=== PATIENT | male | born 1955 | race Caucasian/White ===

== ENCOUNTER 2016-11-04 12:42 | Outpatient (CLI) | payer OTHER | END 2016-11-04 12:43 | disposition home or self-care (01) | DX: L40.0 Psoriasis vulgaris (principal); L29.8 Other pruritus; Z79.899 Other long term (current) drug therapy; Z71.89 Other specified counseling ==

== ENCOUNTER 2017-02-24 14:21 | Outpatient (CLI) | payer OTHER ==
[2017-02-24 18:46] LABS: BASOPHILS % (AUTO) 0.4 %; EOSINOPHILS # (AUTO) 0.1 10^3/uL (0.0-0.7); HCT - HEMATOCRIT 40.8 % (42.0-52.0); HGB - HEMOGLOBIN 13.9 g/dL (14.0-18.0); LYMPHOCYTES % (AUTO) 31.4 %; MEAN CORPUSCULAR HEMOGLOBIN 34.3 pg (27.0-31.0); MEAN CORPUSCULAR HGB CONC 34.1 g/dL (32.0-36.0); MEAN CORPUSCULAR VOLUME 100.5 fL (80.0-94.0); MEAN PLATELET VOLUME 9.9 fL (7.4-11.4); MONOCYTES # (AUTO) 0.5 10^3/uL (0.0-1.0); MONOCYTES % (AUTO) 8.3 %; NEUTROPHILS # (AUTO) 3.8 10^3/uL (1.5-6.6); NEUTROPHILS % (AUTO) 58.9 %; RED BLOOD COUNT 4.06 10^6/uL (4.70-6.10); UNCORRECTED WHITE BLOOD COUNT 6.5 x10^3/uL; WHITE BLOOD COUNT 6.5 x10^3/uL (4.8-10.8)
[2017-02-24 18:57] LABS: ALBUMIN/GLOBULIN RATIO 1.8 (1.0-2.2); BILIRUBIN,TOTAL 1.2 mg/dL (0.2-1.0); BUN - BLOOD UREA NITROGEN 20 mg/dL (6-20); CALCIUM 9.3 mg/dL (8.5-10.3); CARBON DIOXIDE - CO2 27 mmol/L (21-32); CHLORIDE 104 mmol/L (101-111); CHOLESTEROL 182 mg/dL; GFR - MDRD 76 (>89); GLUCOSE 99 mg/dL (70-100); HDL CHOLESTEROL 89 mg/dL; POTASSIUM 3.7 mmol/L (3.5-5.0); SODIUM 139 mmol/L (135-145); TOTAL PROTEIN 7.2 g/dL (6.7-8.2); TRIGLYCERIDES 37 mg/dL
[2017-02-24 19:26] LABS: LDL CHOLESTEROL,DIRECT 75 mg/dL
[2017-02-24 19:33] LABS: HEMOGLOBIN A1C 0.5 g/dL
== END 2017-02-24 14:22 | disposition home or self-care (01) ==
LOC: LAB.F 14:21
PROVIDERS: ATTEND Internal Medicine
DX: I10 Essential (primary) hypertension (principal); R73.09 Other abnormal glucose
CPT/HCPCS: 36415; 80053; 80061; 83036; 85025

== ENCOUNTER 2017-04-30 15:33 | Outpatient (CLI) | payer OTHER ==
[2017-04-30 15:58] LABS: BASOPHILS % (AUTO) 0.7 %; EOSINOPHILS # (AUTO) 0.1 10^3/uL (0.0-0.7); EOSINOPHILS % (AUTO) 2.2 %; HCT - HEMATOCRIT 42.6 % (42.0-52.0); HGB - HEMOGLOBIN 14.5 g/dL (14.0-18.0); LYMPHOCYTES # (AUTO) 1.9 10^3/uL (1.5-3.5); MEAN CORPUSCULAR HEMOGLOBIN 34.4 pg (27.0-31.0); MEAN CORPUSCULAR HGB CONC 34.1 g/dL (32.0-36.0); MEAN CORPUSCULAR VOLUME 100.8 fL (80.0-94.0); MEAN PLATELET VOLUME 9.7 fL (7.4-11.4); MONOCYTES # (AUTO) 0.6 10^3/uL (0.0-1.0); NEUTROPHILS # (AUTO) 4.1 10^3/uL (1.5-6.6); NEUTROPHILS % (AUTO) 60.1 %; RED BLOOD COUNT 4.23 10^6/uL (4.70-6.10); RED CELL DISTRIBUTION WIDTH 13.1 % (12.0-15.0); UNCORRECTED WHITE BLOOD COUNT 6.7 x10^3/uL; WHITE BLOOD COUNT 6.7 x10^3/uL (4.8-10.8)
[2017-04-30 16:08] LABS: ALBUMIN/GLOBULIN RATIO 1.4 (1.0-2.2); BILIRUBIN,TOTAL 1.4 mg/dL (0.2-1.0); CALCIUM 8.9 mg/dL (8.5-10.3); POTASSIUM 3.5 mmol/L (3.5-5.0); TOTAL PROTEIN 7.4 g/dL (6.7-8.2)
== END 2017-04-30 15:34 | disposition home or self-care (01) ==
LOC: LAB 15:33
PROVIDERS: ATTEND Family Medicine
DX: L40.0 Psoriasis vulgaris (principal); Z79.899 Other long term (current) drug therapy; L82.1 Other seborrheic keratosis; L81.4 Other melanin hyperpigmentation; D22.5 Melanocytic nevi of trunk; D22.72 Melanocytic nevi of left lower limb, including hip; Z71.89 Other specified counseling; L81.8 Other specified disorders of pigmentation
CPT/HCPCS: 36415; 80053; 85025

== ENCOUNTER 2017-07-14 13:12 | Outpatient (CLI) | payer OTHER | END 2017-07-14 13:13 | disposition home or self-care (01) | LOC: LAB.F 13:12 | PROVIDERS: ATTEND Internal Medicine | DX: I10 Essential (primary) hypertension (principal) | CPT/HCPCS: 36415; 83735 ==

== ENCOUNTER 2017-09-15 09:54 | Outpatient (CLI) | payer OTHER | END 2017-09-15 09:55 | disposition home or self-care (01) | LOC: LAB.F 09:54 | PROVIDERS: ATTEND Internal Medicine | DX: N40.0 Benign prostatic hyperplasia without lower urinary tract symptoms (principal) | CPT/HCPCS: 36415; 84153 ==

== ENCOUNTER 2017-11-25 14:32 | Outpatient (CLI) | payer OTHER ==
[2017-11-25 14:57] LABS: BASOPHILS # (AUTO) 0.2 10^3/uL (0.0-0.1); EOSINOPHILS # (AUTO) 0.3 10^3/uL (0.0-0.7); EOSINOPHILS % (AUTO) 3.3 %; HGB - HEMOGLOBIN 14.1 g/dL (14.0-18.0); LYMPHOCYTES # (AUTO) 1.5 10^3/uL (1.5-3.5); LYMPHOCYTES % (AUTO) 20.5 %; MEAN CORPUSCULAR HEMOGLOBIN 33.5 pg (27.0-31.0); MEAN CORPUSCULAR HGB CONC 33.7 g/dL (32.0-36.0); MEAN CORPUSCULAR VOLUME 99.3 fL (80.0-94.0); MEAN PLATELET VOLUME 8.9 fL (7.4-11.4); MONOCYTES # (AUTO) 0.5 10^3/uL (0.0-1.0); MONOCYTES % (AUTO) 6.3 %; NEUTROPHILS % (AUTO) 66.9 %; PLT - PLATELET COUNT 201 10^3/uL (130-450); RED CELL DISTRIBUTION WIDTH 13.3 % (12.0-15.0); WHITE BLOOD COUNT 7.5 x10^3/uL (4.8-10.8)
[2017-11-25 15:27] LABS: ALBUMIN 4.2 g/dL (3.2-5.5); ALBUMIN/GLOBULIN RATIO 1.3 (1.0-2.2); BILIRUBIN,TOTAL 0.8 mg/dL (0.2-1.0); CREATININE 1.1 mg/dL (0.6-1.2); TOTAL PROTEIN 7.4 g/dL (6.7-8.2)
[2017-11-26 13:41] LABS: HIV AG/AB 4TH GEN NON-REACTIVE (NON-REACTIVE)
[2017-11-26 14:12] LABS: HEPATITIS B SURFACE ANTIGEN NON-REACTIVE (NON-REACTIVE)
[2017-11-26 15:36] LABS: HEPATITIS C ANTIBODY NON-REACTIVE (NON-REACTIVE)
== END 2017-11-25 14:33 | disposition home or self-care (01) ==
LOC: LAB 14:32
PROVIDERS: ATTEND Physician Assistant
DX: L40.0 Psoriasis vulgaris (principal)
CPT/HCPCS: 36415; 80053; 81599; 85025; 86803; 87340; 87389

== ENCOUNTER 2017-11-25 16:04 | Outpatient (CLI) | payer OTHER ==
--- NOTE | 2017-11-26 11:51 | XRAY Report ---
TWO VIEW CHEST: 11/25/2017 CLINICAL INDICATION: Cough. COMPARISON: 06/08/2017. FINDINGS: Frontal and lateral views of the chest demonstrate a normal cardiac silhouette. The lungs remain clear. No effusion or pneumothorax is present. IMPRESSION: NORMAL CHEST, UNCHANGED. TD: 11/26/2017 11:50
== END 2017-11-25 16:05 | disposition home or self-care (01) ==
LOC: DI 16:04
PROVIDERS: ATTEND Internal Medicine
DX: R05 Cough (principal); L40.0 Psoriasis vulgaris
CPT/HCPCS: 36415; 71046; 80053; 81599; 85025; 86480; 86803; 87340; 87389

== ENCOUNTER 2018-03-08 07:25 | Outpatient (CLI) | payer OTHER ==
[2018-03-08 11:46] LABS: BASOPHILS % (AUTO) 0.6 %; EOSINOPHILS # (AUTO) 0.2 10^3/uL (0.0-0.7); HGB - HEMOGLOBIN 14.3 g/dL (14.0-18.0); LYMPHOCYTES # (AUTO) 1.4 10^3/uL (1.5-3.5); LYMPHOCYTES % (AUTO) 28.7 %; MEAN CORPUSCULAR HEMOGLOBIN 34.9 pg (27.0-31.0); MEAN CORPUSCULAR HGB CONC 34.7 g/dL (32.0-36.0); MEAN CORPUSCULAR VOLUME 100.7 fL (80.0-94.0); MEAN PLATELET VOLUME 10.2 fL (7.4-11.4); MONOCYTES # (AUTO) 0.5 10^3/uL (0.0-1.0); MONOCYTES % (AUTO) 10.5 %; NEUTROPHILS # (AUTO) 2.7 10^3/uL (1.5-6.6); NEUTROPHILS % (AUTO) 56.2 %; PLT - PLATELET COUNT 158 10^3/uL (130-450); RED CELL DISTRIBUTION WIDTH 13.6 % (12.0-15.0); WHITE BLOOD COUNT 4.7 x10^3/uL (4.8-10.8)
[2018-03-08 12:03] LABS: ALBUMIN 4.4 g/dL (3.2-5.5); ALBUMIN/GLOBULIN RATIO 1.6 (1.0-2.2); ALKALINE PHOSPHATASE 59 IU/L (42-121); ALT ALANINE AMINOTRANSFERASE 29 IU/L (10-60); AST ASPARTATE AMINOTRANSFERASE 36 IU/L (10-42); BILIRUBIN,TOTAL 0.8 mg/dL (0.2-1.0); BUN - BLOOD UREA NITROGEN 18 mg/dL (6-20); CALCIUM 9.1 mg/dL (8.5-10.3); CARBON DIOXIDE - CO2 28 mmol/L (21-32); CHLORIDE 102 mmol/L (101-111); CHOLESTEROL 187 mg/dL; CREATININE 1.1 mg/dL (0.6-1.2); GFR - MDRD 68 (>89); GLUCOSE 116 mg/dL (70-100); HDL CHOLESTEROL 94 mg/dL; SODIUM 139 mmol/L (135-145); TOTAL PROTEIN 7.2 g/dL (6.7-8.2)
[2018-03-08 12:22] LABS: LDL CHOLESTEROL,DIRECT 88 mg/dL; LDLD/HDL RATIO 0.9 (<3.6)
[2018-03-08 12:25] LABS: PLATELET ESTIMATE, MANUAL NORMAL (130-450,000) (NORMAL); PLATELET MORPHOLOGY 1+ LARGE PLATELETS (NORMAL); RBC MORPHOLOGY (MULTIPLE) NORMAL APPEARANCE (NORMAL)
== END 2018-03-08 07:26 | disposition home or self-care (01) ==
LOC: LAB.F 07:25
PROVIDERS: ATTEND Internal Medicine
DX: N40.0 Benign prostatic hyperplasia without lower urinary tract symptoms (principal); L40.50 Arthropathic psoriasis, unspecified; E78.5 Hyperlipidemia, unspecified; I10 Essential (primary) hypertension
CPT/HCPCS: 36415; 80053; 80061; 83721; 84153; 85025

== ENCOUNTER 2018-11-11 16:08 | Outpatient (CLI) | payer OTHER ==
[2018-11-11 16:33] LABS: BASOPHILS % (AUTO) 0.5 %; EOSINOPHILS # (AUTO) 0.1 10^3/uL (0.0-0.7); EOSINOPHILS % (AUTO) 2.4 %; HGB - HEMOGLOBIN 13.9 g/dL (14.0-18.0); LYMPHOCYTES % (AUTO) 33.2 %; MEAN CORPUSCULAR HEMOGLOBIN 33.7 pg (27.0-31.0); MEAN CORPUSCULAR HGB CONC 33.9 g/dL (32.0-36.0); MEAN CORPUSCULAR VOLUME 99.5 fL (80.0-94.0); MEAN PLATELET VOLUME 8.8 fL (7.4-11.4); MONOCYTES # (AUTO) 0.6 10^3/uL (0.0-1.0); NEUTROPHILS # (AUTO) 3.3 10^3/uL (1.5-6.6); NEUTROPHILS % (AUTO) 53.9 %; PLT - PLATELET COUNT 172 10^3/uL (130-450); RED BLOOD COUNT 4.13 10^6/uL (4.70-6.10); RED CELL DISTRIBUTION WIDTH 13.3 % (12.0-15.0); WHITE BLOOD COUNT 6.1 x10^3/uL (4.8-10.8)
[2018-11-11 16:40] LABS: ALBUMIN 4.3 g/dL (3.2-5.5); ALBUMIN/GLOBULIN RATIO 1.5 (1.0-2.2); BILIRUBIN,TOTAL 1.6 mg/dL (0.2-1.0); CREATININE 1.1 mg/dL (0.6-1.2); TOTAL PROTEIN 7.2 g/dL (6.7-8.2)
== END 2018-11-11 16:09 | disposition home or self-care (01) ==
LOC: LAB 16:08
PROVIDERS: ATTEND Physician Assistant
DX: L40.0 Psoriasis vulgaris (principal)
CPT/HCPCS: 36415; 80053; 81599; 85025; 86480

== ENCOUNTER 2019-04-24 17:21 | Emergency (ER) | payer OTHER ==
[2019-04-24 17:39] VITALS: BP 165/94
== END 2019-04-24 17:43 | disposition left against medical advice (07) ==
LOC: ED 17:21
DX: Z53.21 Procedure and treatment not carried out due to patient leaving prior to being seen by health care provider (principal)

== ENCOUNTER 2019-09-15 11:14 | Emergency (ER) | payer OTHER ==
[2019-09-15 11:33] LABS: BASOPHILS % (AUTO) 0.6 %; EOSINOPHILS # (AUTO) 0.2 10^3/uL (0.0-0.7); EOSINOPHILS % (AUTO) 2.3 %; HGB - HEMOGLOBIN 15.4 g/dL (14.0-18.0); LYMPHOCYTES # (AUTO) 2.2 10^3/uL (1.5-3.5); LYMPHOCYTES % (AUTO) 34.8 %; MEAN CORPUSCULAR HEMOGLOBIN 34.5 pg (27.0-31.0); MEAN CORPUSCULAR HGB CONC 34.8 g/dL (32.0-36.0); MEAN CORPUSCULAR VOLUME 99.1 fL (80.0-94.0); MEAN PLATELET VOLUME 11.4 fL (7.4-11.4); MONOCYTES # (AUTO) 0.6 10^3/uL (0.0-1.0); MONOCYTES % (AUTO) 8.6 %; NEUTROPHILS # (AUTO) 3.4 10^3/uL (1.5-6.6); NEUTROPHILS % (AUTO) 53.5 %; PLT - PLATELET COUNT 170 10^3/uL (130-450); RED BLOOD COUNT 4.46 10^6/uL (4.70-6.10); RED CELL DISTRIBUTION WIDTH 12.3 % (12.0-15.0); WHITE BLOOD COUNT 6.4 x10^3/uL (4.8-10.8)
[2019-09-15 11:44] LABS: ALBUMIN/GLOBULIN RATIO 1.6 (1.0-2.2); BILIRUBIN,TOTAL 0.9 mg/dL (0.2-1.0); CALCIUM 9.5 mg/dL (8.5-10.3); CREATININE 1.2 mg/dL (0.6-1.2); TOTAL PROTEIN 8.1 g/dL (6.7-8.2)
[2019-09-15] MEDS ORDERED: PROCAINAMIDE 1,000 MG in SODIUM CHLORIDE 0.9% 240 ML IV STA (12:05)
--- NOTE | 2019-09-15 12:13 | ED Physician Documentation ---
History of Present Illness - Stated complaint Stated Complaint: HEART PALP - Chief complaint Chief Complaint: Cardiac - History obtained from History obtained from: Patient - History of Present Illness Timing: Today Pain level max: 0 Pain level now: 0 - Additonal information Additional information: 64-year-old male recently diagnosed with atrial fibrillation. Was in the hospital approximately 8 to 9 days ago. He was converted back into sinus rhythm. Today he felt his heart racing and palpitations again. No chest pain. No shortness of breath. Nothing makes it better or worse. He is on Pradaxa and Cardizem at home Review of Systems Ten Systems: 10 systems reviewed and negative Constitutional: denies: Fever, Chills Nose: denies: Rhinorrhea / runny nose, Congestion Respiratory: denies: Cough GI: denies: Abdominal Pain, Nausea, Vomiting, Diarrhea Skin: denies: Rash Musculoskeletal: denies: Neck pain, Back pain Neurologic: denies: Headache PD PAST MEDICAL HISTORY - Past Medical History Past Medical History: Yes Cardiovascular: Hypertension, High cholesterol, Atrial fibrillation, Arrhythmia Respiratory: None Neuro: CVA, Seizure disorder Endocrine/Autoimmune: None GI: None SET UP PERSON: None : Nocturia HEENT: Chronic vision loss, Chronic sinusitis Psych: Anxiety Musculoskeletal: Fatigue, Other (psoriatic arthritis) Derm: Eczema, Psoriasis - Past Surgical History General: Colonoscopy - Present Medications Home Medications: Ambulatory Orders Medication Instructions Recorded Confirmed Hydrochlorothiazide 12.5 mg PO DAILY 04/10/13 09/06/19 Pravastatin Sodium 40 mg PO QPM 04/10/13 09/06/19 Adalimumab [Humira Pen] 40 mg SUBQ Q14D 09/06/19 09/06/19 buPROPion [Wellbutrin Xl] 150 mg PO DAILY 09/06/19 09/06/19 Apixaban [Eliquis] 5 mg PO BID #60 tablet 09/07/19 Aspirin [Durlaza] 162.5 mg PO DAILY #30 cap.er.24h 09/07/19 Enoxaparin [Lovenox] 100 mg SQ Q12H #4 syringe 09/07/19 Losartan Potassium 12.5 mg PO DAILY #30 tablet 09/07/19 Tamsulosin [Flomax] 0.4 mg PO DAILY #30 capsule 09/07/19 diltiaZEM CD [Cardizem Cd] 120 mg PO DAILY #30 capsule 09/07/19 - Allergies Allergies/Adverse Reactions: Allergies Allergy/AdvReac Type Severity Reaction Status Date / Time No Known Drug Allergies Allergy Verified 09/06/19 10:07 - Social History Does the pt smoke?: Yes Smoking Status: Former smoker - POLST Patient has POLST: No POLST Status: Full Code PD ED PE NORMAL - Vitals Vital signs reviewed: Yes - General General: Alert and oriented X 3, No acute distress - HEENT HEENT: Moist mucous membranes - Neck Neck: Supple, no meningeal sign - Cardiac Cardiac: Other (Irregularly irregular) - Respiratory Respiratory: No respiratory distress, Clear bilaterally - Abdomen Abdomen: Soft, Non tender, Non distended - Derm Derm: Warm and dry - Extremities Extremities: No edema - Neuro Neuro: Alert and oriented X 3 Results - Vitals Vitals: Vital Signs - 24 hr 09/15/19 09/15/19 09/15/19 11:20 12:00 12:30 Temperature 36.0 C L Heart Rate 102 H 105 H 84 Respiratory 18 14 20 Rate Blood Pressure 158/93 H 141/94 H 101/70 O2 Saturation 98 100 96 09/15/19 09/15/19 13:00 13:30 Temperature Heart Rate 66 82 Respiratory 14 19 Rate Blood Pressure 120/72 114/83 H O2 Saturation 96 97 Oxygen O2 Source Room air - EKG (time done) 1126 Rate: Rate (enter#) (129) Rhythm: Atrial fibrillation (With RVR) [place]: Normal QRS: Normal Ischemia: Other (Rate related changes) - Labs Labs: Laboratory Tests 09/15/19 09/15/19 11:25 11:25 WBC 6.4 RBC 4.46 L Hgb 15.4 Hct 44.2 MCV 99.1 H MCH 34.5 H MCHC 34.8 RDW 12.3 Plt Count 170 MPV 11.4 Neut # (Auto) 3.4 Lymph # (Auto) 2.2 [place] # (Auto) 0.6 Eos # (Auto) 0.2 Baso # (Auto) 0.0 Absolute Nucleated RBC 0.00 Nucleated RBC % 0.0 Sodium 138 Potassium 3.6 Chloride 98 L Carbon Dioxide 26 Anion Gap 14.0 H BUN 26 H Creatinine 1.2 Estimated GFR (MDRD) 61 L Glucose 135 H Calcium 9.5 Total Bilirubin 0.9 AST 30 ALT 24 Alkaline Phosphatase 59 Total Protein 8.1 Albumin 5.0 Globulin 3.1 Albumin/Globulin Ratio 1.6 Lipase 44 PD MEDICAL DECISION MAKING - ED course Complexity details: reviewed results, re-evaluated patient, considered differential, d/w patient ED course: Patient with atrial fibrillation with rapid ventricular response. He is anticoagulated on Pradaxa. He did not want to have electrical cardioversion performed. Procainamide was given. His heart rate did slow, he became asymptomatic. As he is rate controlled and anticoagulated, he would like to go home at this time. I think this is reasonable and he will follow-up with his doctor for further care. Patient counseled regarding signs and symptoms for which I believe and urgent re-evaluation would be necessary. Patient with good understanding of and agreement to plan and is comfortable going home at this time This document was made in part using voice recognition software. While efforts are made to proofread this document, sound alike and grammatical errors may occur. Departure - Departure Disposition: 01 Home, Self Care Clinical Impression: Atrial fibrillation Qualifiers: Atrial fibrillation type: unspecified Qualified Code(s): I48.91 - Unspecified atrial fibrillation Condition: Good Instructions: ED Afib Follow-Up: Dee Cordon ARNP [Primary Care Provider] - Within 1 week Comments: Continue your medications at home. Return if you worsen. Return especially if your heart rate is sustained above 100. Or if you are having chest pain or difficulty breathing. Discharge Date/Time: 09/15/19 14:02
[2019-09-15 13:34] VITALS: BP 114/83
== END 2019-09-15 14:02 | disposition home or self-care (01) ==
LOC: ED 11:14
DX: I48.91 Unspecified atrial fibrillation (principal); I10 Essential (primary) hypertension; Z87.891 Personal history of nicotine dependence; Z79.01 Long term (current) use of anticoagulants
CPT/HCPCS: 36415; 80053; 83690; 85025; 93005; 96365; 99284; 99285; J2690

== ENCOUNTER 2020-01-25 13:42 | Emergency (ER) | payer OTHER ==
[2020-01-25] MEDS ORDERED: SODIUM CHLORIDE 0.9% 1,000 ML IV STA (13:55)
[2020-01-25 14:07] LABS: BASOPHILS # (AUTO) 0.1 10^3/uL (0.0-0.1); BASOPHILS % (AUTO) 0.7 %; EOSINOPHILS # (AUTO) 0.3 10^3/uL (0.0-0.7); EOSINOPHILS % (AUTO) 3.7 %; HGB - HEMOGLOBIN 15.2 g/dL (14.0-18.0); LYMPHOCYTES # (AUTO) 1.9 10^3/uL (1.5-3.5); LYMPHOCYTES % (AUTO) 28.1 %; MEAN CORPUSCULAR HEMOGLOBIN 34.2 pg (27.0-31.0); MEAN CORPUSCULAR HGB CONC 34.6 g/dL (32.0-36.0); MEAN CORPUSCULAR VOLUME 98.7 fL (80.0-94.0); MEAN PLATELET VOLUME 10.9 fL (7.4-11.4); MONOCYTES # (AUTO) 0.8 10^3/uL (0.0-1.0); MONOCYTES % (AUTO) 12.1 %; NEUTROPHILS # (AUTO) 3.8 10^3/uL (1.5-6.6); NEUTROPHILS % (AUTO) 55.1 %; PLT - PLATELET COUNT 165 10^3/uL (130-450); RED BLOOD COUNT 4.45 10^6/uL (4.70-6.10); RED CELL DISTRIBUTION WIDTH 12.7 % (12.0-15.0); WHITE BLOOD COUNT 6.8 x10^3/uL (4.8-10.8)
[2020-01-25] MEDS ORDERED: DILTIAZEM 50 MG/10 ML VIAL IVP STA (14:11)
[2020-01-25] MEDS ORDERED: DILTIAZEM 50 MG/10 ML VIAL ONE (14:13)
--- NOTE | 2020-01-25 14:14 | ED Physician Documentation ---
History of Present Illness - Stated complaint Stated Complaint: CHEST PALP - Chief complaint Chief Complaint: Cardiac - History obtained from History obtained from: Patient - Additonal information Additional information: This emergency department complaining of palpitations and lightheadedness for the last 4 days. Patient has a history of A. fib for which he has been seen here in our emergency department a couple of times and had ablation performed in [place] a few months ago. Patient states his airport security screener told him he may have short episodes of A. fib from time to time for the first few months, and as such, the patient has remained on Pradaxa and flecainide and diltiazem. However, After the patient told his airport security screener by phone that he was feeling lightheaded with the episodes, his airport security screener told him to come here. Patient denies chest pain or shortness of breath. No swelling in his legs. He states that he is otherwise feeling fine. No changes in his medications. No other co mplaints at this time. Review of Systems Ten Systems: 10 systems reviewed and negative Constitutional: reports: Reviewed and negative Eyes: reports: Reviewed and negative Ears: reports: Reviewed and negative Nose: reports: Reviewed and negative Throat: reports: Reviewed and negative Cardiac: reports: Palpitations Respiratory: reports: Reviewed and negative GI: reports: Reviewed and negative : reports: Reviewed and negative Skin: reports: Reviewed and negative Musculoskeletal: reports: Reviewed and negative Neurologic: reports: Near syncope Psychiatric: reports: Reviewed and negative Endocrine: reports: Reviewed and negative Immunocompromised: reports: Reviewed and negative PD PAST MEDICAL HISTORY - Past Medical History Cardiovascular: Hypertension, High cholesterol, Atrial fibrillation, Arrhythmia Respiratory: None Neuro: CVA, Seizure disorder Endocrine/Autoimmune: None GI: None 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 : Nocturia HEENT: Chronic vision loss, Chronic sinusitis Psych: Anxiety Musculoskeletal: Fatigue, Other (psoriatic arthritis) Derm: Eczema, Psoriasis - Past Surgical History General: Colonoscopy - Present Medications Home Medications: Ambulatory Orders Medication Instructions Recorded Confirmed Hydrochlorothiazide 12.5 mg PO DAILY 04/10/13 09/06/19 Pravastatin Sodium 40 mg PO QPM 04/10/13 09/06/19 Adalimumab [Humira Pen] 40 mg SUBQ Q14D 09/06/19 09/06/19 buPROPion [Wellbutrin Xl] 150 mg PO DAILY 09/06/19 09/06/19 Apixaban [Eliquis] 5 mg PO BID #60 tablet 09/07/19 Aspirin [Durlaza] 162.5 mg PO DAILY #30 cap.er.24h 09/07/19 Enoxaparin [Lovenox] 100 mg SQ Q12H #4 syringe 09/07/19 Losartan Potassium 12.5 mg PO DAILY #30 tablet 09/07/19 Tamsulosin [Flomax] 0.4 mg PO DAILY #30 capsule 09/07/19 diltiaZEM CD [Cardizem Cd] 120 mg PO DAILY #30 capsule 09/07/19 Diltiazem HCl [Diltiazem 24Hr ER] 240 mg PO DAILY 60 Days #60 01/25/20 cap.sa.24h - Allergies Allergies/Adverse Reactions: Allergies Allergy/AdvReac Type Severity Reaction Status Date / Time No Known Drug Allergies Allergy Verified 09/06/19 10:07 - Social History Does the pt smoke?: Yes Smoking Status: Former smoker - POLST Patient has POLST: No POLST Status: Full Code PD ED PE NORMAL - Vitals Vital signs reviewed: Yes - General General: Alert and oriented X 3, No acute distress - HEENT HEENT: Atraumatic, PERRL, EOMI, Moist mucous membranes - Neck Neck: Supple, no meningeal sign - Cardiac Cardiac: No murmur, Strong equal pulses, Other (Irregularly irregular.) - Respiratory Respiratory: Clear bilaterally - Abdomen Abdomen: Soft, Non tender, Non distended - Derm Derm: Normal color, Warm and dry, No rash - Extremities Extremities: No deformity, No edema (Grossly intact), No calf tenderness / cord - Neuro Neuro: Alert and oriented X 3, Other - Psych Psych: Normal mood, Normal affect Results - Vitals Vitals: Oxygen O2 Source Room air - EKG (time done) 1349 Rate: Rate (enter#) (106) Rhythm: Atrial fibrillation, Other (with intermittent sinus beats) Trail: Normal Intervals: Normal ID QRS: Normal Ischemia: Normal ST segments Compare to prior EKG: Old EKG unavailable Computer interpretation: Agree with computer (but add that there are beats of NSR with defined P-waves correlating well witn QRS complexes.) - Labs Labs: Laboratory Tests 01/25/20 01/25/20 01/25/20 14:02 14:02 14:02 WBC 6.8 RBC 4.45 L Hgb 15.2 Hct 43.9 MCV 98.7 H MCH 34.2 H MCHC 34.6 RDW 12.7 Plt Count 165 MPV 10.9 Neut # (Auto) 3.8 Lymph # (Auto) 1.9 [place] # (Auto) 0.8 Eos # (Auto) 0.3 Baso # (Auto) 0.1 Absolute Nucleated RBC 0.00 Nucleated RBC % 0.0 Sodium 137 Potassium 3.6 Chloride 102 Carbon Dioxide 25 Anion Gap 10.0 BUN 23 H Creatinine 1.0 Estimated GFR (MDRD) 76 L Glucose 112 H Calcium 8.9 Total Bilirubin 0.8 AST 22 ALT 17 Alkaline Phosphatase 64 Total Protein 7.5 Albumin 4.2 Globulin 3.3 Albumin/Globulin Ratio 1.3 Lipase 33 TSH 3.78 PD MEDICAL DECISION MAKING - ED course Complexity details: reviewed results, re-evaluated patient, considered differential, d/w patient ED course: Patient was overall well-appearing. IV was placed, labs were sent, and patient was given a 1 L bolus point in normal saline. He was found on cardiac cath lab technologist to have runs of 4-7 beats of A. fib, interspersed with 2-3 normal sinus beats. EKG showed a similar pattern. The patient's blood pressure was 161/90 during my examination, and patient had no complaint while sitting in the bed feeling lightheaded. Pt was given a dose of Cardizem, with complete resolution of the atrial fibrillation. I spoke with the airport security screener covering for pt's airport security screener, who stated that doubling pt's cardizem dose would be fine, and that he should schedule an appt with his airport security screener in follow-up. Departure - Departure Disposition: 01 Home, Self Care Clinical Impression: Atrial fibrillation Qualifiers: Atrial fibrillation type: paroxysmal Qualified Code(s): I48.0 - Paroxysmal atrial fibrillation Condition: Stable Instructions: ED Afib Prescriptions: Diltiazem HCl [Diltiazem 24Hr ER] 240 mg PO DAILY 60 Days #60 cap.sa.24h Forms: Activity restrictions Discharge Date/Time: 01/25/20 16:15
[2020-01-25 14:21] LABS: ALBUMIN 4.2 g/dL (3.2-5.5); ALBUMIN/GLOBULIN RATIO 1.3 (1.0-2.2); BILIRUBIN,TOTAL 0.8 mg/dL (0.2-1.0); CALCIUM 8.9 mg/dL (8.5-10.3); TOTAL PROTEIN 7.5 g/dL (6.7-8.2)
[2020-01-25 16:08] VITALS: BP 120/78
== END 2020-01-25 16:15 | disposition home or self-care (01) ==
LOC: ED 13:42
DX: I48.0 Paroxysmal atrial fibrillation (principal); Z79.01 Long term (current) use of anticoagulants; I10 Essential (primary) hypertension; Z87.891 Personal history of nicotine dependence
CPT/HCPCS: 36415; 80053; 83690; 84443; 85025; 93005; 96374; 99285

== ENCOUNTER 2020-02-06 15:27 | Outpatient (CLI) | payer OTHER ==
[2020-02-06 19:55] LABS: BASOPHILS % (AUTO) 0.6 %; EOSINOPHILS # (AUTO) 0.2 10^3/uL (0.0-0.7); EOSINOPHILS % (AUTO) 3.4 %; HGB - HEMOGLOBIN 13.9 g/dL (14.0-18.0); LYMPHOCYTES % (AUTO) 28.7 %; MEAN CORPUSCULAR HEMOGLOBIN 34.2 pg (27.0-31.0); MEAN CORPUSCULAR HGB CONC 34.2 g/dL (32.0-36.0); MONOCYTES # (AUTO) 0.6 10^3/uL (0.0-1.0); MONOCYTES % (AUTO) 8.7 %; NEUTROPHILS % (AUTO) 58.2 %; PLT - PLATELET COUNT 154 10^3/uL (130-450); RED BLOOD COUNT 4.07 10^6/uL (4.70-6.10); RED CELL DISTRIBUTION WIDTH 13.2 % (12.0-15.0); WHITE BLOOD COUNT 6.9 x10^3/uL (4.8-10.8)
[2020-02-06 20:07] LABS: ALBUMIN 4.4 g/dL (3.2-5.5); ALBUMIN/GLOBULIN RATIO 1.8 (1.0-2.2); ALKALINE PHOSPHATASE 62 IU/L (42-121); ALT ALANINE AMINOTRANSFERASE 26 IU/L (10-60); AST ASPARTATE AMINOTRANSFERASE 32 IU/L (10-42); BILIRUBIN,TOTAL 1.1 mg/dL (0.2-1.0); BUN - BLOOD UREA NITROGEN 14 mg/dL (6-20); CALCIUM 9.9 mg/dL (8.5-10.3); CARBON DIOXIDE - CO2 29 mmol/L (21-32); CHLORIDE 100 mmol/L (101-111); CHOL/HDL RATIO 2.1 (<5.0); CHOLESTEROL 186 mg/dL; CREATININE 1.1 mg/dL (0.6-1.2); GLUCOSE 90 mg/dL (70-100); HDL CHOLESTEROL 89 mg/dL; LDL CHOLESTEROL,CALCULATED 89 mg/dL; SODIUM 140 mmol/L (135-145); TOTAL PROTEIN 6.9 g/dL (6.7-8.2); VLDL CHOLESTEROL 8 mg/dL
[2020-02-06 20:10] LABS: HB2 TOTAL 14.4 g/dL; HEMOGLOBIN A1C 0.57 g/dL; HEMOGLOBIN A1C % 5.8 % (4.6-6.2)
== END 2020-02-06 15:28 | disposition home or self-care (01) ==
LOC: LAB.S 15:27
PROVIDERS: ATTEND Registered Nurse
DX: R73.9 Hyperglycemia, unspecified (principal); I48.91 Unspecified atrial fibrillation; E78.5 Hyperlipidemia, unspecified; I10 Essential (primary) hypertension
CPT/HCPCS: 36415; 80053; 80061; 83036; 83721; 84443; 85025

== ENCOUNTER 2020-04-04 06:22 | Outpatient (CLI) | payer OTHER ==
[2020-04-04 06:49] LABS: CREATININE 1.1 mg/dL (0.6-1.2)
[2020-04-04] MEDS ORDERED: IOVERSOL 320 100 ML VIAL IVP ONE ×2 (07:04→14:46)
--- NOTE | 2020-04-04 09:12 | CT Report ---
PROCEDURE: CHEST W INDICATIONS: MEDIASTINAL ADENOPATHY CONTRAST: IV CONTRAST: Optiray 320 ml: 100 PO CONTRAST: *NO PO CONTRAST TECHNIQUE: After the administration of intravenous contrast, 5 mm thick sections acquired from the pulmonary api wes to the posterior costophrenic angles. 7 mm thick coronal MIP reformats were acquired. For radia tion dose reduction, the following was used: automated exposure control, adjustment of mA and/or kV according to patient size. COMPARISON: Chest x-ray 09/06/2019 FINDINGS: Image quality: Excellent. Lungs and pleura: No acute air space opacities. No pleural effusions or pneumothorax. Central and peripheral airways are patent and normal in caliber. Mediastinum: Heart size is normal. No pericardial effusion. No mediastinal or hilar adenopathy by size criteria. There are benign-appearing, normal size distal paratracheal lymph nodes, one of the la rgest measures 7 mm in short axis in the left distal tracheoesophageal groove. Thoracic aorta and emilia tral pulmonary arteries are normal in size. Esophagus is normal in caliber. No hiatal hernia. Bones and chest wall: No suspicious bony lesions. No vertebral body compression fractures. No axil oj or supraclavicular adenopathy by size criteria. Thyroid gland is normal. Abdomen: Visualized upper abdominal solid organs appear normal. Upper abdominal bowel loops are nor mal in caliber. IMPRESSION: 1. No significant mediastinal adenopathy. 2. No CT evidence of acute or chronic cardiopulmonary disease. Reviewed by: Elisa Bermudez MD on 04/04/2020 9:10 AM PDT Approved by: Elisa Bermudez MD on 04/04/2020 9:10 AM PDT Station ID: [id number]
== END 2020-04-04 06:23 | disposition home or self-care (01) ==
LOC: LAB 06:22
PROVIDERS: ATTEND Internal Medicine Cardiovascular Disease
DX: R59.0 Localized enlarged lymph nodes (principal); Z87.891 Personal history of nicotine dependence
CPT/HCPCS: 36415; 71260; 82565; Q9967

== ENCOUNTER 2020-04-26 11:07 | Outpatient (CLI) | payer OTHER ==
[2020-04-26 15:47] LABS: HGB - HEMOGLOBIN 13.8 g/dL (14.0-18.0); MEAN CORPUSCULAR HEMOGLOBIN 33.8 pg (27.0-31.0); MEAN CORPUSCULAR VOLUME 102.5 fL (80.0-94.0); MEAN PLATELET VOLUME 11.4 fL (7.4-11.4); PLT - PLATELET COUNT 160 10^3/uL (130-450); RED BLOOD COUNT 4.08 10^6/uL (4.70-6.10); RED CELL DISTRIBUTION WIDTH 13.2 % (12.0-15.0); WHITE BLOOD COUNT 5.6 x10^3/uL (4.8-10.8)
[2020-04-26 15:55] LABS: ALBUMIN 4.2 g/dL (3.2-5.5); ALBUMIN/GLOBULIN RATIO 1.4 (1.0-2.2); BILIRUBIN,TOTAL 1.2 mg/dL (0.2-1.0); CALCIUM 8.9 mg/dL (8.5-10.3); TOTAL PROTEIN 7.2 g/dL (6.7-8.2)
[2020-04-26 16:19] LABS: BASOPHILS % (AUTO) 0.7 %; EOSINOPHILS # (AUTO) 0.2 10^3/uL (0.0-0.7); EOSINOPHILS % (AUTO) 3.5 %; LYMPHOCYTES # (AUTO) 1.9 10^3/uL (1.5-3.5); LYMPHOCYTES % (AUTO) 34.4 %; MONOCYTES # (AUTO) 0.5 10^3/uL (0.0-1.0); MONOCYTES % (AUTO) 8.7 %; NEUTROPHILS # (AUTO) 2.9 10^3/uL (1.5-6.6); NEUTROPHILS % (AUTO) 52.5 %
[2020-04-27 09:31] LABS: HIV AG/AB 4TH GEN NON-REACTIVE (NON-REACTIVE)
[2020-04-27 12:30] LABS: HEPATITIS B SURFACE ANTIGEN NON-REACTIVE (NON-REACTIVE)
== END 2020-04-26 11:08 | disposition home or self-care (01) ==
LOC: LAB.S 11:07
PROVIDERS: ATTEND Physician Assistant
DX: L40.0 Psoriasis vulgaris (principal)
CPT/HCPCS: 36415; 80053; 81599; 85025; 85027; 86480; 87340; 87389

== ENCOUNTER 2020-08-27 10:35 | Outpatient (CLI) | payer OTHER ==
[2020-08-27 15:54] LABS: CALCIUM 9.5 mg/dL (8.5-10.3); CREATININE 1.1 mg/dL (0.6-1.2)
[2020-08-27 15:59] LABS: HEMOGLOBIN A1c% 5.7 % (4.27-6.07)
[2020-08-28 12:22] LABS: HEPATITIS C ANTIBODY NON-REACTIVE (NON-REACTIVE)
== END 2020-08-27 10:36 | disposition home or self-care (01) ==
LOC: LAB.S 10:35
PROVIDERS: ATTEND Registered Nurse
DX: Z00.00 Encounter for general adult medical examination without abnormal findings (principal); R73.9 Hyperglycemia, unspecified
CPT/HCPCS: 36415; 80048; 83036; 86803

== ENCOUNTER 2020-10-11 16:25 | Outpatient (CLI) | payer OTHER ==
[2020-10-11 16:47] LABS: BASOPHILS # (AUTO) 0.1 10^3/uL (0.0-0.1); BASOPHILS % (AUTO) 0.8 %; EOSINOPHILS # (AUTO) 0.2 10^3/uL (0.0-0.7); EOSINOPHILS % (AUTO) 3.5 %; HCT - HEMATOCRIT 42.7 % (42.0-52.0); HGB - HEMOGLOBIN 14.3 g/dL (14.0-18.0); LYMPHOCYTES % (AUTO) 31.1 %; MEAN CORPUSCULAR HEMOGLOBIN 33.3 pg (27.0-31.0); MEAN CORPUSCULAR HGB CONC 33.5 g/dL (32.0-36.0); MEAN CORPUSCULAR VOLUME 99.5 fL (80.0-94.0); MEAN PLATELET VOLUME 10.5 fL (7.4-11.4); MONOCYTES # (AUTO) 0.7 10^3/uL (0.0-1.0); MONOCYTES % (AUTO) 9.9 %; NEUTROPHILS # (AUTO) 3.6 10^3/uL (1.5-6.6); NEUTROPHILS % (AUTO) 54.4 %; PLT - PLATELET COUNT 160 10^3/uL (130-450); RED BLOOD COUNT 4.29 10^6/uL (4.70-6.10); RED CELL DISTRIBUTION WIDTH 13.2 % (12.0-15.0); WHITE BLOOD COUNT 6.6 x10^3/uL (4.8-10.8)
[2020-10-11 16:58] LABS: ALBUMIN 4.4 g/dL (3.2-5.5); BILIRUBIN,DIRECT 0.1 mg/dL (0.1-0.5); BILIRUBIN,TOTAL 0.7 mg/dL (0.2-1.0); TOTAL PROTEIN 7.4 g/dL (6.7-8.2)
--- NOTE | 2020-10-11 17:55 | XRAY Report ---
PROCEDURE: Knee 2 View BILAT INDICATIONS: KNEE JOINT PAIN TECHNIQUE: 2 views of the both knee(s) were acquired. 3 images. COMPARISON: Left knee radiographs 01/09/2014. FINDINGS: Bones: No fractures or dislocations. No suspicious bony lesions. Small osteophytes bilaterally. Soft tissues: No joint effusion. No suspicious soft tissue calcifications. IMPRESSION: Mild bilateral knee DJD. Reviewed by: Dustin Murillo MD on 10/11/2020 5:53 PM PST Approved by: Dustin Murillo MD on 10/11/2020 5:53 PM PST Station ID: [id number]
== END 2020-10-11 16:26 | disposition home or self-care (01) ==
LOC: LAB 16:25 → DI 16:26
PROVIDERS: ATTEND Registered Nurse
DX: M25.561 Pain in right knee (principal); M25.562 Pain in left knee; M17.0 Bilateral primary osteoarthritis of knee; L40.0 Psoriasis vulgaris; L81.4 Other melanin hyperpigmentation; L40.59 Other psoriatic arthropathy
CPT/HCPCS: 36415; 80076; 85025

== ENCOUNTER 2021-08-19 10:52 | Outpatient (CLI) | payer OTHER ==
[2021-08-19 15:28] LABS: BASOPHILS % (AUTO) 0.8 %; EOSINOPHILS # (AUTO) 0.1 10^3/uL (0.0-0.7); EOSINOPHILS % (AUTO) 2.6 %; HCT - HEMATOCRIT 41.2 % (42.0-52.0); HGB - HEMOGLOBIN 14.2 g/dL (14.0-18.0); LYMPHOCYTES # (AUTO) 1.6 10^3/uL (1.5-3.5); LYMPHOCYTES % (AUTO) 29.7 %; MEAN CORPUSCULAR HEMOGLOBIN 34.2 pg (27.0-31.0); MEAN CORPUSCULAR HGB CONC 34.5 g/dL (32.0-36.0); MEAN CORPUSCULAR VOLUME 99.3 fL (80.0-94.0); MEAN PLATELET VOLUME 11.5 fL (7.4-11.4); MONOCYTES # (AUTO) 0.5 10^3/uL (0.0-1.0); MONOCYTES % (AUTO) 8.8 %; NEUTROPHILS # (AUTO) 3.1 10^3/uL (1.5-6.6); NEUTROPHILS % (AUTO) 57.9 %; PLT - PLATELET COUNT 179 10^3/uL (130-450); RED BLOOD COUNT 4.15 10^6/uL (4.70-6.10); RED CELL DISTRIBUTION WIDTH 13.4 % (12.0-15.0); WHITE BLOOD COUNT 5.3 x10^3/uL (4.8-10.8)
[2021-08-19 15:55] LABS: ALBUMIN 4.2 g/dL (3.2-5.5); ALBUMIN/GLOBULIN RATIO 1.4 (1.0-2.2); ALKALINE PHOSPHATASE 58 IU/L (42-121); ALT ALANINE AMINOTRANSFERASE 15 IU/L (10-60); AST ASPARTATE AMINOTRANSFERASE 20 IU/L (10-42); BILIRUBIN,TOTAL 0.8 mg/dL (0.2-1.0); BUN - BLOOD UREA NITROGEN 13 mg/dL (6-20); CALCIUM 9.2 mg/dL (8.5-10.3); CARBON DIOXIDE - CO2 26 mmol/L (21-32); CHLORIDE 104 mmol/L (101-111); CHOL/HDL RATIO 2.2 (<5.0); CHOLESTEROL 185 mg/dL; CREATININE 0.9 mg/dL (0.6-1.2); GFR - MDRD 85 (>89); GLUCOSE 102 mg/dL (70-100); HDL CHOLESTEROL 86 mg/dL; SODIUM 140 mmol/L (135-145); TOTAL PROTEIN 7.3 g/dL (6.7-8.2); TRIGLYCERIDES 37 mg/dL
[2021-08-19 15:57] LABS: THYROID STIMULATING HORMONE 2.32 uIU/mL (0.34-5.60)
[2021-08-19 17:22] LABS: ESTIMATED AVERAGE GLUCOSE 120 mg/dL (70-100); HEMOGLOBIN A1c% 5.8 % (4.27-6.07)
== END 2021-08-19 10:53 | disposition home or self-care (01) ==
LOC: LAB.S 10:52
PROVIDERS: ATTEND Registered Nurse
DX: Z00.00 Encounter for general adult medical examination without abnormal findings (principal); R73.9 Hyperglycemia, unspecified; N40.0 Benign prostatic hyperplasia without lower urinary tract symptoms; E78.5 Hyperlipidemia, unspecified; I10 Essential (primary) hypertension; I48.91 Unspecified atrial fibrillation
CPT/HCPCS: 36415; 80053; 80061; 83036; 83721; 84153; 84443; 85025

== ENCOUNTER 2021-08-26 15:01 | Outpatient (CLI) | payer OTHER ==
[2021-08-26 15:38] LABS: CREATININE 1.1 mg/dL (0.6-1.2)
== END 2021-08-26 15:02 | disposition home or self-care (01) ==
LOC: LAB 15:01
PROVIDERS: ATTEND Internal Medicine Clinical Cardiac Electrophysiology
DX: I48.0 Paroxysmal atrial fibrillation (principal)
CPT/HCPCS: 36415; 82565

== ENCOUNTER 2022-01-21 12:43 | Outpatient (CLI) | payer OTHER ==
--- NOTE | 2022-01-21 16:16 | MRI Report ---
PROCEDURE: Shoulder RT W/O INDICATIONS: RIGHT SHOULDER PAIN TECHNIQUE: Noncontrast oblique coronal T2 fast spin echo with fat saturation, oblique sagittal T1 spin echo and T2 fast spin echo with fat saturation, axial T1 spin echo and T2 fast spin echo with fat saturation t hrough the shoulder. COMPARISON: None. FINDINGS: Image quality: Excellent. Rotator cuff: Tendinosis and moderate grade articular and bursal surface partial-thickness tear invol ving distal supraspinatus at its insertion on humeral head extending to muscular tendinous junction. Distal infraspinatus tendinosis and low-grade articular surface partial-thickness tear is also seen. Calcifications are noted involving distal supraspinatus at its insertion on humeral head consistent w ith hydroxyapatite deposition disease. Distal subscapularis tendinosis is also seen. No full-thicknes s rotator cuff tendon rupture. No rotator cuff muscle atrophy on sagittal images. Bones and bursae: Moderate acromioclavicular joint osteoarthritic changes are seen with joint space n arrowing and downward osteophyte formation depressing on musculotendinous junction of supraspinatus. Mild to moderate glenohumeral joint osteoarthritic changes also seen. No fracture or dislocation. Non specific marrow edema involving greater tuberosity of humeral head is seen near rotator cuff tendon i nsertion. Capsule and soft tissues: Subtle signal abnormality and contour irregularity involving superior anter ior labrum at 12 to 1:00 position is seen suggestive of subtle superior anterior labral tear. There i s also suggestion of subtle anterior inferior labral tear at 5 to 6:00 position. The glenohumeral lig aments appear intact. The long head of the biceps tendinosis is seen. The rotator interval appears n ormal, without fibrosis. The coracohumeral ligament is normal in thickness. IMPRESSION: 1. Tendinosis and moderate grade articular and bursal surface partial-thickness tear involving distal supraspinatus extending to muscular tendinous junction. Suggestion of calcific tendinitis involving distal supraspinatus. Distal infraspinatus tendinosis and low-grade articular surface partial-thickne ss tear. Distal subscapularis tendinosis. No full-thickness rotator cuff tendon rupture. 2. Moderate acromioclavicular joint osteoarthritis and mild to moderate glenohumeral joint osteoarthr itis. No fracture or dislocation. Small to moderate subacromial subdeltoid bursal fluid. 3. Suggestion of subtle superior anterior labral tear at 12 to 1:00 position an anterior inferior lab ral tear at 5 to 6:00 position. 4. Proximal intra-articular portion of long head of biceps tendinosis. Reviewed by: Jude Leary MD on 01/21/2022 4:15 PM PDT Approved by: Jude Leary MD on 01/21/2022 4:15 PM PDT Station ID: [id number]
== END 2022-01-21 12:44 | disposition home or self-care (01) ==
LOC: DI 12:43
PROVIDERS: ATTEND Internal Medicine
DX: M75.111 Incomplete rotator cuff tear or rupture of right shoulder, not specified as traumatic (principal); M19.011 Primary osteoarthritis, right shoulder; M75.81 Other shoulder lesions, right shoulder